=== PATIENT | male | born 1995 | race Caucasian/White ===

== ENCOUNTER 2017-11-25 06:32 | Emergency (ER) | payer BC | END 2017-11-25 07:08 | disposition home or self-care (01) | LOC: ER 06:32 | DX: J40 Bronchitis, not specified as acute or chronic (principal); J98.9 Respiratory disorder, unspecified; B97.89 Other viral agents as the cause of diseases classified elsewhere; J45.909 Unspecified asthma, uncomplicated; E66.9 Obesity, unspecified; F17.210 Nicotine dependence, cigarettes, uncomplicated; Z68.38 Body mass index [BMI] 38.0-38.9, adult; Z79.899 Other long term (current) drug therapy; Z88.5 Allergy status to narcotic agent | CPT/HCPCS: 99283 ==

== ENCOUNTER 2018-05-26 15:06 | Emergency (ER) | payer OTHER ==
[~2018-05-26] VITALS: Ht 167.6 cm; Wt 136.1 kg
[~2018-05-26 15:06] MED LIST: AZIT250T6 PO; PRED20TA PO; PROAIR HFA8.5 GM INH
[2018-05-26 15:15] VITALS: BP 155/77
--- NOTE | 2018-05-26 15:29 | PHYS DOC ---
Past Medical History Past Medical History: Asthma Past Surgical History: No Surgical History Additional Past Surgical Histo: Club foot surgery. Alcohol Use: None Drug Use: None Adult General Chief Complaint Chief Complaint: OTHER COMPLAINTS [facility] HPI Patient is a 23 year old male with a history of asthma who presents to the ED today complaining of 10 out of 10 right ear pain that has been going on intermittently for a week. Patient is also complaining of intermittent episodes of right-sided headache with numbness to the right side of the face. Denies any fever coughing or congestion. He states he is under a lot of stress at home due to illnesses of several family members. Denies any chest pain or shortness of breath. Denies any trauma. Patient states he is a transgender male to female. Review of Systems Review of Systems Constitutional: Denies fever or chills [] Eyes: Denies change in visual acuity, redness, or eye pain [] HENT: Reports right ear pain. Denies nasal congestion or sore throat [] Respiratory: Denies cough or shortness of breath [] Cardiovascular: No additional information not addressed in HPI [] GI: Denies abdominal pain, nausea, vomiting, bloody stools or diarrhea [] : Denies dysuria or hematuria [] Musculoskeletal: Denies back pain or joint pain [] Integument: Denies rash or skin lesions [] Neurologic: Reports right-sided headache with some numbness to the right side of the face. Denies headache, focal weakness or sensory changes [] All other systems were reviewed and found to be within normal limits, except as documented in this note. Current Medications Current Medications Current Medications Medications (Trade) Dose Ordered Sig/Sean Start Time Stop Time Status Last Admin Dose Admin Dexamethasone Sodium Phosphate (Decadron) 10 mg 1X ONCE 05/26/18 15:30 05/26/18 15:31 DC 05/26/18 15:43 10 MG Ondansetron HCl (Zofran Odt) 4 mg 1X ONCE 05/26/18 15:30 05/26/18 15:31 DC 05/26/18 15:42 4 MG Allergies Allergies Allergies Coded Allergies Type Severity Reaction Last Updated Verified codeine Allergy Intermediate Hives 03/26/14 Yes hydrocodone Allergy Intermediate 06/18/15 No Physical Exam Physical Exam Constitutional: Well developed, well nourished, no acute distress, non-toxic appearance. [] HENT: Normocephalic, atraumatic, bilateral external ears normal, oropharynx moist, no oral exudates, nose normal. Bilateral ear canals are impacted with cerumen. Eyes: PERRLA, EOMI, conjunctiva normal, no discharge. [] Neck: Normal range of motion, no tenderness, supple, no stridor. [] Cardiovascular:Heart rate regular rhythm, no murmur [] Lungs & Thorax: Bilateral breath sounds clear to auscultation [] Abdomen: Bowel sounds normal, soft, no tenderness, no masses, no pulsatile masses. [] Skin: Warm, dry, no erythema, no rash. [] Back: No tenderness, no CVA tenderness. [] Extremities: No tenderness, no cyanosis, no clubbing, ROM intact, no edema. [] Neurologic: Alert and oriented X 3, normal motor function, normal sensory function, no focal deficits noted. Cranial nerves II through XII intact Psychologic: Affect normal, judgement normal, mood normal. [] Current Patient Data Vital Signs Vital Signs Date Time Temp Pulse Resp B/P (MAP) Pulse Ox O2 Delivery O2 Flow Rate FiO2 05/26/18 15:15 98.2 100 20 155/77 (103) 97 Room Air 98.2 Lab Values Laboratory Tests Test 05/26/18 15:18 Glucose (Fingerstick) 132 mg/dL (70-99) H EKG EKG [] Radiology/Procedures Radiology/Procedures []PROCEDURE: CT HEAD WO CONTRAST CT head without contrast 05/26/2018 CLINICAL INDICATION: Headache. COMPARISON: None. TECHNIQUE: Multiple CT images of the head were obtained without contrast. *One or more of the following individualized dose reduction techniques were utilized for this examination: 1. Automated exposure control. 2. Adjustment of the mA and/or kV according to patient size. 3. Use of iterative reconstruction technique. FINDINGS: No acute intracranial hemorrhage or extra-axial fluid collection. No midline shift. The ventricles and subarachnoid spaces are normal in size and configuration. The williamson-white matter interfaces are maintained. The basal cisterns are patent. Near-complete opacification of the right maxillary sinus and partial opacification of the left maxillary sinus. Mild ethmoid sinus dorsal thickening IMPRESSION: 1. No acute intracranial hemorrhage. 2. Paranasal sinus disease Electronically signed by: Adelita Fernando MD (05/26/2018 4:06 PM) [facility] [place] SIGNED BY: ADELITA FERNANDO MD DATE: 05/26/18 0950 Course & Med Decision Making Course & Med Decision Making Pertinent Labs and Imaging studies reviewed. (See chart for details) This is a 23-year-old male patient presented to the ED today complaining of right-sided ear pain and headache intermittently for week. Also complaining of numbness to the right side of the face. FAST exam is negative. Bilateral ear canals were noted to have moderate amount of cerumen which was cleared up in the ED. CT of the head interpreted by radiologist was noted for sinusitis otherwise no acute findings. Patient was given Decadron in the ED with good relief of his headache. Discharged on Augmentin, prednisone, and diclofenac. Follow-up with PCP in 1-2 weeks. Provided return precautions and discharged in stable condition. Dragon Disclaimer Dragon Disclaimer This electronic medical record was generated, in whole or in part, using a voice recognition dictation system. Departure Departure Impression: Primary Impression: Headache Additional Impressions: Stress Sinusitis, acute Impacted cerumen of both ears Disposition: 01 HOME, SELF-CARE Condition: STABLE Referrals: NO PCP (PCP) follow up with your doctor next week Patient Instructions: Cerumen Impaction, General Headache Without Cause, Sinusitis Additional Instructions: You were evaluated in the emergency room and noted to have sinus infection. We put you on antibiotics, ensure you complete them. Take the rest of the prescribed medications as ordered. Follow-up with your doctor next week. Come back to the ED at any point symptoms worsen. Scripts Amoxicillin/Potassium Clav (AUGMENTIN 875-125 TABLET) 1 Each Tablet 1 TAB PO BID, #20 TAB Prov: ABY MICHELLE DEPLOYMENT MANAGER 05/26/18 Diclofenac Sodium (DICLOFENAC SODIUM) 50 Mg Tablet.dr 1 TAB PO BID, #20 TAB 0 Refills Prov: MUTUNGAABY DEPLOYMENT MANAGER 05/26/18 Prednisone (PREDNISONE) 50 Mg Tablet 1 TAB PO DAILY, #5 TAB Prov: MUTUNGAABY DEPLOYMENT MANAGER 18 Problem Qualifiers Primary Impression: Headache Headache type: unspecified Headache chronicity pattern: acute headache Intractability: not intractable Qualified Codes: R51 - Headache Additional Impressions: Sinusitis, acute Sinusitis location: unspecified location Recurrence: not specified as recurrent Qualified Codes: J01.90 - Acute sinusitis, unspecified ABY MICHELLE DEPLOYMENT MANAGER May 26, 2018 15:29
[2018-05-26] MEDS ORDERED: ONDANSETRON ODT 4 MG TAB.RAPDIS. PO ONE (15:30)
[2018-05-26] MEDS ORDERED: DEXAMETHASONE SOD PHOS 20 MG/5 ML VIAL. IM ONE (15:30)
--- NOTE | 2018-05-26 16:09 | RAD ---
CT head without contrast 05/26/2018 CLINICAL INDICATION: Headache. COMPARISON: None. TECHNIQUE: Multiple CT images of the head were obtained without contrast. *One or more of the following individualized dose reduction techniques were utilized for this examination: 1. Automated exposure control. 2. Adjustment of the mA and/or kV according to patient size. 3. Use of iterative reconstruction technique. FINDINGS: No acute intracranial hemorrhage or extra-axial fluid collection. No midline shift. The ventricles and subarachnoid spaces are normal in size and configuration. The williamson-white matter interfaces are maintained. The basal cisterns are patent. Near-complete opacification of the right maxillary sinus and partial opacification of the left maxillary sinus. Mild ethmoid sinus dorsal thickening IMPRESSION: 1. No acute intracranial hemorrhage. 2. Paranasal sinus disease Electronically signed by: Michoacano Rocha MD (05/26/2018 4:06 PM) [facility] – [place]
[2018-05-26] MEDS ORDERED: DICL50TA4 PO (16:28)
[2018-05-26] MEDS ORDERED: PRED50TA PO (16:28)
[2018-05-26] MEDS ORDERED: AMOX1TAB61 PO (16:28)
== END 2018-05-26 16:41 | disposition home or self-care (01) ==
LOC: ER 15:06
DX: R51 Headache (principal); H61.23 Impacted cerumen, bilateral; J01.90 Acute sinusitis, unspecified; F43.9 Reaction to severe stress, unspecified; J45.909 Unspecified asthma, uncomplicated; Z88.5 Allergy status to narcotic agent
CPT/HCPCS: 69209; 70450; 82962; 96372; 99285; J1100; Q0162; 99284-25

== ENCOUNTER 2018-11-28 23:12 | Emergency (ER) | payer SELFPAY ==
[~2018-11-28] VITALS: Ht 165.1 cm; Wt 136.1 kg
[2018-11-28 23:12] VITALS: BP 152/93
[~2018-11-28 23:12] MED LIST changes: +ALBU2.5V8 INH; +AMOX1TAB61 PO; +DICL50TA4 PO; +PRED50TA PO; -PROAIR HFA8.5 GM INH
[2018-11-29] MEDS ORDERED: predniSONE 10 MG TABLET ONE (00:42)
[2018-11-29] MEDS ORDERED: predniSONE 20 MG TABLET ONE (00:43)
[2018-11-29] MEDS ORDERED: PRED50TA PO (00:53)
--- NOTE | 2018-11-29 00:54 | PHYS DOC ---
Past Medical History Past Medical History: Anxiety, Asthma, Depression, Other Additional Past Medical Histor: TRANSGENDER Past Surgical History: Other Additional Past Surgical Histo: Club foot surgery. Alcohol Use: None Drug Use: None Adult General Chief Complaint Chief Complaint: SKIN RASH/ABSCESS HPI HPI 23-year-old male presents to the ER who prefers to be addressed as a female came to the ER for left upper arm rash. She reports rash has been present for the past several days and has been worsening. She reports rash is itchy. She reports she has been taking Benadryl at home with minimal relief in symptoms. She denies any shortness of air, wheezing, difficulty swallowing, or sore/ swollen throat. She reports she has been using different laundry detergent and a skin lotion. Review of Systems Review of Systems Constitutional: Denies fever or chills [] HENT: Denies swollen/sore throat. Denies difficulty swallowing Respiratory: Denies cough or shortness of breath [] Cardiovascular: Denies CP/tightness GI: Denies nausea, vomiting Musculoskeletal: Denies back/neck pain or joint pain [] Integument: Reports rash lt upper arm Neurologic: Denies focal weakness or sensory changes [] All other systems were reviewed and found to be within normal limits, except as documented in this note. Current Medications Current Medications Current Medications Medications (Trade) Dose Ordered Sig/Sean Start Time Stop Time Status Last Admin Dose Admin Prednisone (Prednisone) 50 mg 1X ONCE 11/29/18 00:45 11/29/18 00:46 UNV Allergies Allergies Allergies Coded Allergies Type Severity Reaction Last Updated Verified codeine Allergy Intermediate Hives 03/26/14 Yes hydrocodone Allergy Intermediate 06/18/15 No Physical Exam Physical Exam Constitutional: Well developed, well nourished, no acute distress, non-toxic appearance.Clear speech- no muffled voice HENT: Normocephalic, atraumatic, oropharynx moist- no pharyngeal swelling/ erythema, no oral exudates, nose normal. [] Eyes: Pupils equal, conjunctiva normal, no discharge. [] Neck: Normal range of motion, no tenderness, supple, no stridor. [] Cardiovascular:Heart rate regular rhythm, no murmur [] Lungs & Thorax: Bilateral breath sounds clear to auscultation. Resp. equal/ nonlabored Skin: Warm, dry Back: No tenderness, no CVA tenderness. [] Extremities: No tenderness, no cyanosis, no clubbing, ROM intact, no edema. 2+ radial bilat. Raised rash lt anterior upper arm- no papules. Rash is diffuse Neurologic: Alert and oriented X 3, normal motor function, normal sensory function, no focal deficits noted. [] Psychologic: Affect normal, judgement normal, mood normal. [] Current Patient Data Vital Signs Vital Signs Date Time Temp Pulse Resp B/P (MAP) Pulse Ox O2 Delivery O2 Flow Rate FiO2 11/28/18 23:12 98.3 124 18 152/93 (112) 96 Room Air 98.3 EKG EKG [] Radiology/Procedures Radiology/Procedures [] Course & Med Decision Making Course & Med Decision Making She was evaluated in the ER for complaints of upper left arm rash which she reports has been gradually worsening. She denied any respiratory distress, difficulty swallowing, or swollen throat. She reports she had taken Benadryl with minimal relief. Discussed contact dermatitis and patient was provided with dose of prednisone while in the ER. She had reported change in laundry detergent and body lotion. Patient was in no visible distress while in the ER. Will provide prescription for prednisone with discharge paperwork. Advised on continued use of antihistamines.Education provided on signs and symptoms to return to ER. Discharge instructions were discussed. Patient to follow-up with primary care physician if symptoms persist or with any concerns. Dragon Disclaimer Dragon Disclaimer This electronic medical record was generated, in whole or in part, using a voice recognition dictation system. Departure Departure Impression: Primary Impression: Contact dermatitis Disposition: HOME, SELF-CARE Condition: STABLE Referrals: NO PCP (PCP) Patient Instructions: Contact Dermatitis Additional Instructions: Avoid new soaps/lotions until rash is gone. You can take Benedryl as directed on container. Start prednisone prescription on 11/29/18. If symptoms persist follow-up with primary care physician for reevaluation and further care. Scripts Prednisone (PREDNISONE) 50 Mg Tablet 1 TAB PO DAILY, #4 TAB 0 Refills Start on 11/30/18 Prov: REEMA HODGE APRN 11/29/18 REEMA HODGE APRN Nov 29, 2018 00:54
[2018-11-29] MEDS ORDERED: predniSONE 20 MG TABLET PO ONE (01:00)
[2018-11-29] MEDS ORDERED: predniSONE 10 MG TABLET PO ONE (01:00)
== END 2018-11-29 01:11 | disposition home or self-care (01) ==
LOC: ER 23:12
DX: L25.9 Unspecified contact dermatitis, unspecified cause (principal); F41.9 Anxiety disorder, unspecified; J45.909 Unspecified asthma, uncomplicated; F32.9 Major depressive disorder, single episode, unspecified; Z88.5 Allergy status to narcotic agent
CPT/HCPCS: 99283; J7512

== ENCOUNTER 2018-12-15 16:50 | Emergency (ER) | payer SELFPAY ==
[~2018-12-15] VITALS: Ht 167.6 cm; Wt 157.1 kg
[2018-12-15 16:57] VITALS: BP 173/102
[2018-12-15] MEDS ORDERED: TRIA15OI TP (17:20)
--- NOTE | 2018-12-15 17:20 | PHYS DOC ---
Past Medical History Past Medical History: Anxiety, Asthma, Depression, Other Additional Past Medical Histor: TRANSGENDER Past Surgical History: Other Additional Past Surgical Histo: Club foot surgery. Alcohol Use: None Drug Use: None Adult General Chief Complaint Chief Complaint: SKIN PROBLEM HPI HPI Patient is a 23 year old male who presents to be addressed as woman who presents to the ED today complaining of a nonpruritic rash that began a week ago. Patient states he has already tried prednisone with no relief. He states the rash seemed to be spreading. Review of Systems Review of Systems Constitutional: Denies fever or chills [] Musculoskeletal: Denies back pain or joint pain [] Integument: Reports rash Neurologic: Denies headache, focal weakness or sensory changes [] All other systems were reviewed and found to be within normal limits, except as documented in this note. Allergies Allergies Allergies Coded Allergies Type Severity Reaction Last Updated Verified codeine Allergy Intermediate Hives 03/26/14 Yes hydrocodone Allergy Intermediate 06/18/15 No Physical Exam Physical Exam Constitutional: Well developed, well nourished, no acute distress, non-toxic appearance. [] Skin: Left upper extremity with trace amount of erythematous macular rash, similar rash on bilateral inner thighs. Back: No tenderness, no CVA tenderness. [] Extremities: No tenderness, no cyanosis, no clubbing, ROM intact, no edema. [] Neurologic: Alert and oriented X 3, normal motor function, normal sensory function, no focal deficits noted. [] Psychologic: Affect normal, judgement normal, mood normal. [] Current Patient Data Vital Signs Vital Signs Date Time Temp Pulse Resp B/P (MAP) Pulse Ox O2 Delivery O2 Flow Rate FiO2 12/15/18 16:57 98.4 95 14 173/102 (125) 98 Room Air 98.4 EKG EKG [] Radiology/Procedures Radiology/Procedures [] Course & Med Decision Making Course & Med Decision Making Pertinent Labs and Imaging studies reviewed. (See chart for details) This is a 23-year-old male patient presenting to the ED today with contact dermatitis rash, no known cause, patient has already tried prednisone. Discharged on triamcinolone cream, encouraged to take Benadryl at night and Zyrtec during the day and follow-up with a academic guidance specialist. Gera Disclaimer Dragon Disclaimer This electronic medical record was generated, in whole or in part, using a voice recognition dictation system. Departure Departure Impression: Primary Impression: Contact dermatitis Disposition: 01 HOME, SELF-CARE Condition: STABLE Referrals: NO PCP (PCP) JONATHAN ROBBINS MD follow up in 4-6 weeks Patient Instructions: Contact Dermatitis Additional Instructions: You were seen in the emergency room for contact dermatitis rash from unknown cause. Continue taking the Benadryl tonight and Zyrtec during the day. Use the prescribed ointment as ordered. Follow-up with a academic guidance specialist provided in 4-6 weeks if symptoms persist. He Scripts Triamcinolone Acetonide (TRIAMCINOLONE ACETONIDE 0.1% OINT) 15 Gm Oint...g. 1 GIO TP BID for WOUND CARE, #1 TUBE 1 Refill Prov: ABY MICHELLE APRN 12/15/18 Problem Qualifiers Primary Impression: Contact dermatitis Contact dermatitis type: unspecified Contact dermatitis trigger: unspecified trigger Qualified Codes: L25.9 - Unspecified contact de rmatitis, unspecified cause ABY MICHELLE ATTENDANT SALES Dec 15, 2018 17:20
== END 2018-12-15 17:45 | disposition home or self-care (01) ==
LOC: ER 16:50
DX: L25.9 Unspecified contact dermatitis, unspecified cause (principal); F41.9 Anxiety disorder, unspecified; J45.909 Unspecified asthma, uncomplicated; F32.9 Major depressive disorder, single episode, unspecified
CPT/HCPCS: 99283

== ENCOUNTER 2019-02-13 21:33 | Emergency (ER) | payer OTHER ==
[~2019-02-13] VITALS: Ht 167.6 cm; Wt 134.3 kg
[~2019-02-13 21:33] MED LIST changes: +TRIA15OI TP
[2019-02-13 21:43] VITALS: BP 158/97
[2019-02-13] MEDS ORDERED: AMOX500C PO (22:01)
[2019-02-13] MEDS ORDERED: IBUP-1060 PO (22:01)
--- NOTE | 2019-02-13 22:01 | PHYS DOC ---
Past Medical History Past Medical History: Anxiety, Asthma, Depression, Other Additional Past Medical Histor: TRANSGENDER Past Surgical History: Other Additional Past Surgical Histo: Club foot surgery. Alcohol Use: None Drug Use: None Adult General Chief Complaint Chief Complaint: EARACHE/EAR PAIN [facility] HPI Patient is a 23 year old PRESENTS FOR EVAL OF LEFT EAR PAIN FOR SEVERAL DAYS. REPORTS HX CERUMEN IMPCTION, HAS BEENUSING OTC KITS FOR IMPACTION Review of Systems Review of Systems Constitutional: Denies fever or chills [] Eyes: Denies change in visual acuity, redness, or eye pain [] HENT: Denies nasal congestion or sore throat + EAR PAIN[] Respiratory: Denies cough or shortness of breath [] Cardiovascular: No additional information not addressed in HPI [] GI: Denies abdominal pain, nausea, vomiting, bloody stools or diarrhea [] : Denies dysuria or hematuria [] Musculoskeletal: Denies back pain or joint pain [] Integument: Denies rash or skin lesions [] Neurologic: Denies headache, focal weakness or sensory changes [] Endocrine: Denies polyuria or polydipsia [] All other systems were reviewed and found to be within normal limits, except as documented in this note. Allergies Allergies Allergies Coded Allergies Type Severity Reaction Last Updated Verified codeine Allergy Intermediate Hives 03/26/14 Yes hydrocodone Allergy Intermediate 06/18/15 No Physical Exam Physical Exam Constitutional: Well developed, well nourished, no acute distress, non-toxic appearance. [] HENT: Normocephalic, atraumatic, bilateral external ears normal, RT EAR CERUMEN IMPACTION, LEFT TM ERYTHEMA oropharynx moist, no oral exudates, nose normal. [] Eyes: PERRLA, EOMI, conjunctiva normal, no discharge. [] Neck: Normal range of motion, no tenderness, supple, no stridor. [] Extremities: No tenderness, no cyanosis, no clubbing, ROM intact, no edema. [] Neurologic: Alert and oriented X 3, normal motor function, normal sensory function, no focal deficits noted. [] Psychologic: Affect normal, judgement normal, mood normal. [] Current Patient Data Vital Signs Vital Signs Date Time Temp Pulse Resp B/P (MAP) Pulse Ox O2 Delivery O2 Flow Rate FiO2 02/13/19 21:43 99.7 104 18 158/97 (117) 94 Room Air 99.7 EKG EKG [] Radiology/Procedures Radiology/Procedures [RT EAR CERUMEN IMPACTION FLUSHED, TM VISIBLE TO REVEAL ERYTHEMATOUS TM, NO P ERFORATION] Course & Med Decision Making Course & Med Decision Making Pertinent Labs and Imaging studies reviewed. (See chart for details) [RX AMOX FOR OTITIS MEDIA] Gera Disclaimer Dragon Disclaimer This electronic medical record was generated, in whole or in part, using a voice recognition dictation system. Departure Departure Impression: Primary Impression: Otitis media Additional Impression: Cerumen impaction Disposition: HOME, SELF-CARE Condition: STABLE Referrals: NO PCP (PCP) Patient Instructions: Cerumen Impaction, Otitis Media, Adult Scripts Ibuprofen (IBUPROFEN) 800 Mg Tablet 800 MG PO PRN Q6HRS PRN for INFLAMMATION, #20 TAB Prov: LUIS MCDONALD APRN 02/13/19 Amoxicillin (AMOXICILLIN) 500 Mg Capsule 1 CAP PO TID, #30 CAP Prov: LUIS MCDONALD APRN 02/13/19 Problem Qualifiers Primary Impression: Otitis media Otitis media type: unspecified Chronicity: acute Qualified Codes: H66.90 - Otitis media, unspecified, unspecified ear Additional Impression: Cerumen impaction Laterality: right Qualified Codes: H61.21 - Impacted cerumen, right ear LUIS MCDONALD APRN Feb 13, 2019 22:01
== END 2019-02-13 22:07 | disposition home or self-care (01) ==
LOC: ER 21:33
DX: H61.21 Impacted cerumen, right ear (principal); H66.91 Otitis media, unspecified, right ear; J45.909 Unspecified asthma, uncomplicated; Z88.5 Allergy status to narcotic agent
CPT/HCPCS: 69209; 99283

== ENCOUNTER 2019-02-16 00:05 | Emergency (ER) | payer OTHER ==
[~2019-02-16] VITALS: Ht 167.6 cm; Wt 134.3 kg
[~2019-02-16 00:05] MED LIST changes: +AMOX500C PO; +IBUP-1060 PO
[2019-02-16 00:50] VITALS: BP 137/105
[2019-02-16 01:17] LABS: BILIRUBIN,URINE SMALL (NEG); CLARITY,URINE CLEAR; COLOR,URINE AMBER; NITRITE,URINE NEGATIVE (NEG); PROTEIN,URINE NEGATIVE (NEG-TRACE)
[2019-02-16 01:23] LABS: BARBITURATES NEG (NEG); BENZODIAZEPINES NEG (NEG); CANNABINOIDS NEG (NEG); COCAINE NEG (NEG); METHADONE NEG (NEG); OPIATES NEG (NEG); PHENCYCLIDINE NEG (NEG); SQUAMOUS EPITHELIAL CELL,UR MOD /LPF
[2019-02-16 01:24] LABS: BACTERIA,URINE 0 /HPF (0-FEW); RBC,URINE RARE /HPF (0-2)
[2019-02-16 01:26] LABS: AMPHETAMINE/METHAMPHETAMINE NEG (NEG)
[2019-02-16 01:49] LABS: BASO # 0.1 x10^3/uL (0.0-0.2); BASO % 1 % (0-3); EOS # 0.2 x10^3/uL (0.0-0.7); EOS % 2 % (0-3); HEMATOCRIT 45.3 % (39.0-53.0); HEMOGLOBIN 15.4 g/dL (13.0-17.5); LYMPH # 2.9 x10^3/uL (1.0-4.8); LYMPH % 23 % (24-48); MEAN CORPUSCULAR HEMOGLOBIN 29 pg (25-35); MEAN CORPUSCULAR HGB CONC 34 g/dL (31-37); MEAN CORPUSCULAR VOLUME 84 fL (79-100); MONO # 0.6 x10^3/uL (0.0-1.1); MONO % 5 % (0-9); NEUT # 8.5 x10^3uL (1.8-7.7); NEUT % 69 % (31-73); PLATELET COUNT 303 x10^3/uL (140-400); RED BLOOD COUNT 5.39 x10^6/uL (4.30-5.70); RED CELL DISTRIBUTION WIDTH 13.9 % (11.5-14.5); WHITE BLOOD COUNT 12.4 x10^3/uL (4.0-11.0)
[2019-02-16 02:00] LABS: CALCIUM 9.2 mg/dL (8.5-10.1); GFR 91.8; POTASSIUM 3.5 mmol/L (3.5-5.1)
[2019-02-16 02:05] LABS: ALBUMIN 3.8 g/dL (3.4-5.0); ALBUMIN/GLOBULIN RATIO 1.1 (1.0-1.7); MAGNESIUM 1.9 mg/dL (1.8-2.4); TOTAL BILIRUBIN 0.2 mg/dL (0.2-1.0); TOTAL PROTEIN 7.4 g/dL (6.4-8.2)
[2019-02-16] MEDS ORDERED: LORA0.5T96 PO (02:38)
--- NOTE | 2019-02-16 02:38 | PHYS DOC ---
Past Medical History Past Medical History: Anxiety, Asthma, Depression, Other Additional Past Medical Histor: TRANSGENDER Past Surgical History: Other Additional Past Surgical Histo: Club foot surgery. Alcohol Use: None Drug Use: None Adult General Chief Complaint Chief Complaint: NEURO SYMPTOMS/DEFICITS [facility] HPI Patient is a 23 year old [f__sex] who presents with [] Review of Systems Review of Systems Constitutional: Denies fever or chills [] Eyes: Denies change in visual acuity, redness, or eye pain [] HENT: Denies nasal congestion or sore throat [] Respiratory: Denies cough or shortness of breath [] Cardiovascular: No additional information not addressed in HPI [] GI: Denies abdominal pain, nausea, vomiting, bloody stools or diarrhea [] : Denies dysuria or hematuria [] Musculoskeletal: Denies back pain or joint pain [] Integument: Denies rash or skin lesions [] Neurologic: Denies headache, focal weakness or sensory changes [] Endocrine: Denies polyuria or polydipsia [] All other systems were reviewed and found to be within normal limits, except as documented in this note. Current Medications Current Medications Current Medications Medications (Trade) Dose Ordered Sig/Sean Start Time Stop Time Status Last Admin Dose Admin Lorazepam (Ativan Inj) 0.5 mg 1X ONCE 02/16/19 01:15 02/16/19 01:16 DC 02/16/19 01:39 0.5 MG Allergies Allergies Allergies Coded Allergies Type Severity Reaction Last Updated Verified codeine Allergy Intermediate Hives 03/26/14 Yes hydrocodone Allergy Intermediate 06/18/15 No Physical Exam Physical Exam Constitutional: Well developed, well nourished, no acute distress, non-toxic appearance. [] HENT: Normocephalic, atraumatic, bilateral external ears normal, oropharynx moist, no oral exudates, nose normal. [] Eyes: PERRLA, EOMI, conjunctiva normal, no discharge. [] Neck: Normal range of motion, no tenderness, supple, no stridor. [] Cardiovascular:Heart rate regular rhythm, no murmur [] Lungs & Thorax: Bilateral breath sounds clear to auscultation [] Abdomen: Bowel sounds normal, soft, no tenderness, no masses, no pulsatile mas ses. [] Skin: Warm, dry, no erythema, no rash. [] Back: No tenderness, no CVA tenderness. [] Extremities: No tenderness, no cyanosis, no clubbing, ROM intact, no edema. [] Neurologic: Alert and oriented X 3, normal motor function, normal sensory function, no focal deficits noted. [] Psychologic: Affect normal, judgement normal, mood normal. [] Current Patient Data Vital Signs Vital Signs Date Time Temp Pulse Resp B/P (MAP) Pulse Ox O2 Delivery O2 Flow Rate FiO2 02/16/19 00:50 98.3 108 16 137/105 (116) 97 Room Air 98.3 Lab Values Laboratory Tests Test 02/16/19 00:40 02/16/19 01:40 Urine Collection Type Unknown Urine Color Jina Urine Clarity Clear Urine pH 5.0 Urine Specific [place] >=1.030 Urine Protein Negative mg/dL (NEG-TRACE) Urine Glucose (UA) Negative mg/dL (NEG) Urine Ketones (Stick) Negative mg/dL (NEG) Urine Blood Negative (NEG) Urine Nitrite Negative (NEG) Urine Bilirubin Small (NEG) Urine Urobilinogen Dipstick 1.0 mg/dL (0.2 mg/dL) Urine Leukocyte Esterase Negative (NEG) Urine RBC Rare /HPF (0-2) Urine WBC 1-4 /HPF (0-4) Urine Squamous Epithelial Cells Mod /LPF Urine Bacteria 0 /HPF (0-FEW) Urine Mucus Mod /LPF Urine Opiates Screen Neg (NEG) Urine Methadone Screen Neg (NEG) Urine Barbiturates Neg (NEG) Urine Phencyclidine Screen Neg (NEG) Urine Amphetamine/Methamphetamine Neg (NEG) Urine Benzodiazepines Screen Neg (NEG) Urine Cocaine Screen Neg (NEG) Urine Cannabinoids Screen Neg (NEG) Urine Ethyl Alcohol Neg (NEG) White Blood Count 12.4 x10^3/uL (4.0-11.0) H Red Blood Count 5.39 x10^6/uL (4.30-5.70) Hemoglobin 15.4 g/dL (13.0-17.5) Hematocrit 45.3 % (39.0-53.0) Mean Corpuscular Volume 84 fL (79-100) Mean Corpuscular Hemoglobin 29 pg (25-35) Mean Corpuscular Hemoglobin Concent 34 g/dL (31-37) Red Cell Distribution Width 13.9 % (11.5-14.5) Platelet Count 303 x10^3/uL (140-400) Neutrophils (%) (Auto) 69 % (31-73) Lymphocytes (%) (Auto) 23 % (24-48) L Monocytes (%) (Auto) 5 % (0-9) Eosinophils (%) (Auto) 2 % (0-3) Basophils (%) (Auto) 1 % (0-3) Neutrophils # (Auto) 8.5 x10^3uL (1.8-7.7) H Lymphocytes # (Auto) 2.9 x10^3/uL (1.0-4.8) Monocytes # (Auto) 0.6 x10^3/uL (0.0-1.1) Eosinophils # (Auto) 0.2 x10^3/uL (0.0-0.7) Basophils # (Auto) 0.1 x10^3/uL (0.0-0.2) Sodium Level 140 mmol/L (136-145) Potassium Level 3.5 mmol/L (3.5-5.1) Chloride Level 101 mmol/L (98-107) Carbon Dioxide Level 24 mmol/L (21-32) Anion Gap 15 (6-14) H Blood Urea Nitrogen 14 mg/dL (8-26) Creatinine 1.0 mg/dL (0.7-1.3) Estimated GFR (Cockcroft-Gault) 91.8 BUN/Creatinine Ratio 14 (6-20) Glucose Level 157 mg/dL (70-99) H Calcium Level 9.2 mg/dL (8.5-10.1) Magnesium Level 1.9 mg/dL (1.8-2.4) Total Bilirubin 0.2 mg/dL (0.2-1.0) Aspartate Amino Transferase (AST) 17 U/L (15-37) Alanine Aminotransferase (ALT) 38 U/L (16-63) Alkaline Phosphatase 75 U/L (46-116) Total Protein 7.4 g/dL (6.4-8.2) Albumin 3.8 g/dL (3.4-5.0) Albumin/Globulin Ratio 1.1 (1.0-1.7) Laboratory Tests 02/16/19 01:40 Laboratory Tests 02/16/19 01:40 EKG EKG 02/16/2019 @01:18 Sinus Tachycardia at [address] elevations. Radiology/Procedures Radiology/Procedures [] Course & Med Decision Making Course & Med Decision Making Pertinent Labs and Imaging studies reviewed. (See chart for details) [] Dragon Disclaimer Dragon Disclaimer This electronic medical record was generated, in whole or in part, using a voice recognition dictation system. Departure Departure Impression: Primary Impression: Acute anxiety Disposition: HOME, SELF-CARE Condition: IMPROVED Referrals: NO PCP (PCP) Patient Instructions: Anxiety and Panic Attacks, [id number] Scripts Lorazepam (ATIVAN) 0.5 Mg Tablet 0.5 MG PO TID PRN for ANXIETY, #8 TAB Prov: BETSY CAMPOVERDE DO 02/16/19 BETSY CAMPOVERDE DO Feb 16, 2019 02:38
--- NOTE | 2019-02-16 09:54 | EKG ---
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
== END 2019-02-16 03:04 | disposition home or self-care (01) ==
LOC: ER 00:05
DX: F41.9 Anxiety disorder, unspecified (principal); F32.9 Major depressive disorder, single episode, unspecified; J45.909 Unspecified asthma, uncomplicated
CPT/HCPCS: 36415; 80053; 80307; 81001; 83735; 85025; 93005; 96374; 99285; J2060

== ENCOUNTER 2020-06-21 11:27 | Emergency (ER) | payer SELFPAY ==
[~2020-06-21] VITALS: Ht 167.6 cm; Wt 135.0 kg
[~2020-06-21 11:27] MED LIST changes: +LORA0.5T96 PO
[2020-06-21 12:27] VITALS: BP 145/88
[2020-06-21] MEDS ORDERED: FLUT9.9S NS (12:58)
[2020-06-21] MEDS ORDERED: AMOX875T PO (12:58)
--- NOTE | 2020-06-21 12:58 | PHYS DOC ---
Past Medical History Past Medical History: Anxiety, Asthma, Depression, Other Additional Past Medical Histor: TRANSGENDER (MALE TO FEMALE) Past Surgical History: Other Additional Past Surgical Histo: Club foot surgery. Smoking Status: Current Every Day Smoker Alcohol Use: None Drug Use: None General Adult EDM: Chief Complaint: EARACHE/EAR PAIN HPI: HPI: Patient is a 25 year old transgender male who presents to the ED today complaining of mild bilateral ear pain with nasal congestion that began 8 days ago. Patient denies any fever. He states he was coughing when laying down. Review of Systems: Review of Systems: Constitutional: Denies fever or chills. [] Eyes: Denies change in visual acuity. [] HENT: Reports bilateral ear pain. Reports nasal congestion. Denies sore throat. [] Respiratory: Denies cough or shortness of breath. [] Cardiovascular: Denies chest pain or edema. [] GI: Denies abdominal pain, nausea, vomiting, bloody stools or diarrhea. [] : Denies dysuria. [] Musculoskeletal: Denies back pain or joint pain. [] Integument: Denies rash. [] Neurologic: Denies headache, focal weakness or sensory changes. [] Psychiatric: Denies depression or anxiety. [] Heart Score: Risk Factors: Risk Factors: DM, Current or recent (<one month) smoker, HTN, HLP, family history of CAD, obesity. Risk Scores: Score 0 - 3: 2.5% MACE over next 6 weeks - Discharge Home Score 4 - 6: 20.3% MACE over next 6 weeks - Admit for Clinical Observation Score 7 - 10: 72.7% MACE over next 6 weeks - Early Invasive Strategies Allergies: Allergies: Allergies Coded Allergies Type Severity Reaction Last Updated Verified codeine Allergy Intermediate Hives 03/26/14 Yes hydrocodone Allergy Intermediate 06/18/15 No Physical Exam: PE: Constitutional: Well developed, well nourished, no acute distress, non-toxic appearance. [] HENT: Normocephalic, atraumatic, bilateral external ears normal, oropharynx moist, no oral exudates, Bilateral TM are moderately to injected. No effusion. Patient sounds congested nasally Eyes: PERRLA, EOMI, conjunctiva normal, no discharge. [] Neck: Normal range of motion, no tenderness, supple, no stridor. [] Cardiovascular:Heart rate regular rhythm, no murmur [] Lungs & Thorax: Bilateral breath sounds clear to auscultation [] Abdomen: Bowel sounds normal, soft, no tenderness, no masses, no pulsatile masses. [] Skin: Warm, dry, no erythema, no rash. [] Back: No tenderness, no CVA tenderness. [] Extremities: No tenderness, no cyanosis, no clubbing, ROM intact, no edema. [] Neurologic: Alert and oriented X 3, normal motor function, normal sensory function, no focal deficits noted. [] Psychologic: Affect normal, judgement normal, mood normal. [] Current Patient Data: Vital Signs: Vital Signs Date Time Temp Pulse Resp B/P (MAP) Pulse Ox O2 Delivery O2 Flow Rate FiO2 06/21/20 12:27 98.7 91 18 145/88 (107) 96 Room Air 98.7 EKG: EKG: [] Radiology/Procedures: Radiology/Procedures: [] Course & Med Decision Making: Course & Med Decision Making Pertinent Labs and Imaging studies reviewed. (See chart for details) This is a 25-year-old transgender male presenting to the ED today with otitis media and upper respiratory infection. Prescription for amoxicillin given. He refused to have a Covid test. OTC medications recommended. Click[employer] Disclaimer: ClickScanShare Disclaimer: This electronic medical record was generated, in whole or in part, using a voice recognition dictation system. Departure Departure Impression: Primary Impression: Otitis media Qualified Codes: H65.193 - Other acute nonsuppurative otitis media, bilateral Additional Impression: Upper respiratory infection Qualified Codes: J06.9 - Acute upper respiratory infection, unspecified Disposition: 01 DC HOME SELF CARE/HOMELESS Condition: STABLE Referrals: NO PCP (PCP) follow up with your doctor in 1-2 weeks Patient Instructions: Otitis Media, Adult, [id number], Upper Respiratory Infection, Adult, [id number] Additional Instructions: You were evaluated in the emergency room and diagnosed with ear infection as well as an upper respiratory infection. Use the prescribed medications as other than sure you complete your antibiotics. Follow-up with your doctor in 2 weeks. Push fluids, maintain good hand hygiene. Scripts Amoxicillin (AMOXICILLIN) 875 Mg Tablet 1 TAB PO BID, #20 TAB Prov: MUTUNGAABY [employer] MECH[employer]IC 06/21/20 Fluticasone Propionate (Flonase Allergy Relief) 9.9 Ml Gardner.susp 2 SPRAYS NS DAILY, #1 BOTTLE Prov: ABY MICHELLE APRN 06/21/20 ABY MICHELLE APRN Jun 21, 2020 12:58
== END 2020-06-21 13:00 | disposition home or self-care (01) ==
LOC: ER 11:27
DX: H65.193 Other acute nonsuppurative otitis media, bilateral (principal); J06.9 Acute upper respiratory infection, unspecified; R09.81 Nasal congestion; R05 Cough; F41.9 Anxiety disorder, unspecified; J45.909 Unspecified asthma, uncomplicated; F32.9 Major depressive disorder, single episode, unspecified; F17.200 Nicotine dependence, unspecified, uncomplicated; Z98.890 Other specified postprocedural states; Z88.5 Allergy status to narcotic agent
CPT/HCPCS: 99283

== ENCOUNTER 2020-12-19 12:21 | Emergency (ER) | payer OTHER ==
[~2020-12-19] VITALS: Ht 165.1 cm; Wt 150.0 kg
[2020-12-19 12:21] VITALS: BP 155/98
[~2020-12-19 12:21] MED LIST changes: +AMOX875T PO; +FLUT9.9S NS
[2020-12-19] MEDS ORDERED: DEXAMETHASONE 4 MG TABLET PO ONE (14:00)
[2020-12-19] MEDS ORDERED: METH4TAB2 PO (14:01)
[2020-12-19] MEDS ORDERED: TRIA15CR TP (14:01)
--- NOTE | 2020-12-19 14:04 | PHYS DOC ---
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 (CHANTEL STEVENS [employer]PER[employer]) Smoking Status: Current Every Day Smoker Alcohol Use: None Drug Use: None (CHANTEL STEVENS [employer]PER[employer]) General Adult EDM: Chief Complaint: SKIN PROBLEM HPI: HPI: Patient is a 25 year old male who presents with was over at a friend's house last couple days and she is wearing just a sundress but her upper back was showing in her arms and her lower legs. She states that she started having itching and red bumps that almost look like hives that appeared on her bilateral forearms and her waistline and on her lower legs and on her buttocks and her upper back. Patient states no one else in the house has these bug bites. She states that they can also be fleabites because they do have animals. She denies any pain only itching. 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 [] Eyes: Denies change in visual acuity. [] HENT: Denies nasal congestion or sore throat. [] Respiratory: Denies cough or shortness of breath. [] Cardiovascular: Denies chest pain or edema. [] GI: Denies abdominal pain, nausea, vomiting, bloody stools or diarrhea. [] : Denies dysuria. [] Musculoskeletal: Denies back pain or joint pain. [] Integument: + Generalized rash. [] Neurologic: Denies headache, focal weakness or sensory changes. [] Endocrine: Denies polyuria or polydipsia. [] Lymphatic: Denies swollen glands. [] Psychiatric: Denies depression or anxiety. [] (CHANTEL STEVENS [employer]) Heart Score: C/O Chest Pain: No Risk Factors: Risk Factors: DM, Current or recent (<one month) smoker, HTN, HLP, family history of CAD, obesity. Risk Scores: Score 0 - 3: 2.5% MACE over next 6 weeks - Discharge Home Score 4 - 6: 20.3% MACE over next 6 weeks - Admit for Clinical Observation Score 7 - 10: 72.7% MACE over next 6 weeks - Early Invasive Strategies (CHANTEL STEVENS APRN) Allergies: Allergies: Allergies Coded Allergies Type Severity Reaction Last Updated Verified codeine Allergy Intermediate Hives 03/26/14 Yes hydrocodone Allergy Intermediate 06/18/15 No (CHANTEL STEVENS APRN) Physical Exam: PE: Constitutional: Well developed, well nourished, no acute distress, non-toxic appearance. [] HENT: Normocephalic, atraumatic, bilateral external ears normal, oropharynx moist, no oral exudates, nose normal. [] Eyes: PERRLA, EOMI, conjunctiva normal, no discharge. [] Neck: Normal range of motion, no tenderness, supple, no stridor. [] Cardiovascular:Heart rate regular rhythm, no murmur [] Lungs & Thorax: Bilateral breath sounds clear to auscultation [] Abdomen: Bowel sounds normal, soft, no tenderness, no masses, no pulsatile masses. [] Skin: Warm, dry, no erythema, generalized to posterior forearms, waistline, bilateral lower legs, upper back rash. [] Back: No tenderness, no CVA tenderness. [] Extremities: No tenderness, no cyanosis, no clubbing, ROM intact, no edema. [] Neurologic: Alert and oriented X 3, normal motor function, normal sensory function, no focal deficits noted. [] Psychologic: Affect normal, judgement normal, mood normal. [] (CHANTEL STEVENS APRN) EKG: EKG: [] (CHANTEL STEVENS APRN) Radiology/Procedures: Radiology/Procedures: [] (CHANTEL STEVENS APRN) Course & Med Decision Making: Course & Med Decision Making Pertinent Labs and Imaging studies reviewed. (See chart for details) See HPI. No signs of infection. Alert and oriented x4. Ambulatory to steady gait. Speaks in full clear sentences. No respiratory distress. Denies any chest pain, shortness of breath or vision changes. Patient has no rash to her face or neck. They look like red bites that are sporadic but with a allergic reaction. Patient will be given dexamethasone system and triamcinolone cream. [] (CHANTEL STEVENS APRN) Dragon Disclaimer: Dragon Disclaimer: This electronic medical record was generated, in whole or in part, using a voice recognition dictation system. (CHANTEL STEVENS APRN) Departure Departure Impression: Primary Impression: Rash and nonspecific skin eruption Disposition: HOME / SELF CARE / HOMELESS Condition: STABLE Referrals: NO PCP (PCP) Patient Instructions: Rash Additional Instructions: Follow-up with a primary care provider or marketing systems manager of your choosing if you need to. Use medication as prescribed and with food. Also continue taking Benadryl could help with itching. Scripts Triamcinolone Acetonide (TRIAMCINOLONE ACETONIDE 0.5% CREAM) 15 Gm Cream..g. 1 GIO TP BID, #30 GM Prov: CHANTEL STEVENS APRN 12/19/20 Methylprednisolone (MEDROL) 4 Mg Tab.ds.pk 1 PKG PO UD, #1 PKG START 12/20 Prov: CHANTEL STEVENS APRN 12/19/20 Attending Signature Attending Signature I have participated in the care of this patient and I have reviewed and agree with all pertinent clinical information above including history, exam, and recommendations. (STONE LAMAR DO) CHANTEL STEVENS APRN December 19, 2020 14:04 STONE LAMAR DO December 21, 2020 17:42
== END 2020-12-19 14:51 | disposition home or self-care (01) ==
LOC: ER 12:21
DX: R21 Rash and other nonspecific skin eruption (principal); J45.909 Unspecified asthma, uncomplicated; F17.200 Nicotine dependence, unspecified, uncomplicated; Z88.5 Allergy status to narcotic agent
CPT/HCPCS: 99283